=== PATIENT | male | born 1955 | race Hispanic/Latino ===

== ENCOUNTER 2023-10-19 07:44 | Emergency (ER) | payer MEDICARE ==
[~2023-10-19] VITALS: Ht 170.2 cm; Wt 81.6 kg
[~2023-10-19 07:44] MED LIST: CEPH500B PO; CYCL-309 PO; IBUP-1493 PO
[2023-10-19] MEDS: cefTRIAXone 1G VIAL IM ONE (08:29)
[2023-10-19] MEDS ORDERED: CLIN-141 PO (08:43)
[2023-10-19 09:00] VITALS: BP 136/58; PULSE 78; RESP 16; O2SAT 97
== END 2023-10-19 09:05 | disposition home or self-care (01) ==
LOC: EDH 07:44
DX: T63.391A Toxic effect of venom of other spider, accidental (unintentional), initial encounter (principal); L03.114 Cellulitis of left upper limb; Z79.899 Other long term (current) drug therapy; Z90.49 Acquired absence of other specified parts of digestive tract; Y92.89 Other specified places as the place of occurrence of the external cause
CPT/HCPCS: 99283; 96372; J0696

== ENCOUNTER 2024-07-08 19:46 | Emergency (ER) | payer MEDICARE, OTHER ==
[~2024-07-08] VITALS: Ht 170.2 cm; Wt 77.1 kg
[~2024-07-08 19:46] MED LIST changes: +CLIN-141 PO
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
--- NOTE | 2024-07-08 20:47 | EKG ---
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
[2024-07-08 20:50] LABS: BASOPHILS # (AUTO) 0.08 K/uL (0.00-0.20); BASOPHILS % (AUTO) 0.8 % (0.0-5.0); EOSINOPHILS % (AUTO) 2.1 % (0.0-8.0); HEMATOCRIT 40.6 % (42-54); IMMATURE GRANULOCYTE ABSOLUTE 0.02 K/uL (0-1); LYMPHOCYTES # (AUTO) 2.6 K/uL (1.0-4.8); LYMPHOCYTES % (AUTO) 26.5 % (21.0-51.0); MEAN CORPUSCULAR HEMOGLOBIN 31.1 pg (27.0-33.0); MEAN CORPUSCULAR HGB CONC 33.7 g/dL (32.0-36.0); MEAN CORPUSCULAR VOLUME 92.1 fL (79-99); MONOCYTES % (AUTO) 10.2 % (3.0-13.0); NEUTROPHILS # (AUTO) 5.8 K/uL (1.8-7.7); NEUTROPHILS % (AUTO) 60.2 % (40.0-77.0); PLATELET COUNT (AUTO) 248 K/uL (130-400); RED BLOOD CELL COUNT(AUTO) 4.41 MIL/uL (4.50-6.20); RED CELL DISTRIBUTION WIDTH 13.5 % (11.0-15.5); WHITE BLOOD COUNT (AUTO) 9.6 K/uL (4.8-10.8)
[2024-07-08 20:57] LABS: CARBON DIOXIDE 28 mmol/L (21-32); CHLORIDE 105 mmol/L (101-111); CREATININE 0.9 mg/dL (0.5-1.3); GLOMERULAR FILTR. RATE CALC 93 mL/min (>90); GLUCOSE,RANDOM 111 mg/dL (70-105); POTASSIUM 3.6 mmol/L (3.5-5.1); SODIUM SERUM 139 mmol/L (136-145); UREA NITROGEN, BLOOD 20 mg/dL (7-18)
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
[2024-07-08 21:05] LABS: ALCOHOL, BLOOD < 3 mg/dL (0-10); CREATINE KINASE, TOTAL 130 U/L (21-232)
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
[2024-07-08] MEDS: ketOROlac 15MG/ML VIAL (15MG/ML) IV ONE (21:56)
[2024-07-08 23:06] VITALS: BP 121/61; PULSE 61; RESP 19; TEMP 98.1; O2SAT 98
== END 2024-07-08 23:13 | disposition home or self-care (01) ==
LOC: EDH 19:46
DX: S80.02XA Contusion of left knee, initial encounter (principal); S42.402A Unspecified fracture of lower end of left humerus, initial encounter for closed fracture; V29.99XA Rider (driver) (passenger) of other motorcycle injured in unspecified traffic accident, initial encounter; Y93.89 Activity, other specified; Y92.89 Other specified places as the place of occurrence of the external cause; Y99.8 Other external cause status; Z79.1 Long term (current) use of non-steroidal anti-inflammatories (NSAID)
CPT/HCPCS: 99284; 70450; 96374; 29105; 71045; 29505; 82550; 84484; 80048; 85025; 36415; 73080; 73562; 72125; 93005; J1885